=== PATIENT | male | born 1955 | race Caucasian/White ===

== ENCOUNTER → 2018-02-08 | Outpatient (CLI) | payer OTHER ==
[~2018-02-08] MED LIST: ANTIVERT/2525 MG PO; ASPIRIN81 M1 PO; B-12250 MCG PO; B121000 MCG/1 IM; FERROUS SULFAT324 MG PO; HYDROCODONE-APA1 TA1 PO; K-DUR 2020 MEQ PO; KLOR-CON M2020 MEQ; KLOR-CON M2020 MEQ PO; LANAMINS1 CAP PO; LASIX20 MG PO; LASIX40 MG; LIPITOR20 MG; LOTREL 5 MG-201 CA1; LYRICA100 MG PO; METOPROLOL25 MG PO; MICRO K10 MEQ PO; MOBIC7.5 MG; MOTRIN800 MG PO; MUCINEX600 MG PO; NATURE'S BLEND F1 MG PO; NITROSTAT0.4 MG SL; PLAVIX; PLAVIX75 MG PO; POTASSIUM20 MEQ PO; PRILOSEC40 MG PO; PROTONIX; PROTONIX40 MG PO; ZESTRIL2.5 MG PO; ZOCOR40 MG PO
[2018-02-08 09:37] LABS: BASO % 0.4 % (0.0-1.0); EOS # 0.3 10*3/uL (0.0-0.4); EOS % 3.2 % (1.0-4.0); HEMATOCRIT 30.1 % (42.0-52.0); HEMOGLOBIN 8.6 g/dl (14.0-18.0); LYMPH # 1.3 10*3/uL (1.3-4.4); MEAN CELL VOLUME 72.9 fl (80.0-94.0); MEAN CORPUSCULAR HGB 20.8 pg (27.0-31.0); MEAN CORPUSCULAR HGB CONC 28.6 g/dl (33.0-37.0); MEAN PLATELET VOLUME 10.3 fl (9.6-12.3); MONO # 0.7 10*3/uL (0.1-1.0); MONO % 6.4 % (3.0-9.0); NEUT # 8.2 10*3/uL (2.3-7.9); NEUT % 77.8 % (47.0-73.0); PLATELET COUNT AUTOMATED 352 10*3/uL (130-400); RED BLOOD COUNT 4.13 10*6/uL (4.50-5.90); RED CELL DISTRI WIDTH 15.6 % (0-14.5); WHITE BLOOD COUNT 10.5 10*3/uL (4.8-10.8)
[2018-02-08 10:05] LABS: CHLORIDE 108 mmol/L (98-107); POTASSIUM 4.1 mmol/L (3.5-5.1); SODIUM 141 mmol/L (136-145)
[2018-02-08 10:13] LABS: ALBUMIN 3.4 gm/dl (3.1-4.5); ALKALINE PHOSPHATASE 115 U/L (45-117); BUN 18 mg/dl (7-24); CHOLESTEROL 108 mg/dL (<200); CREATININE 1.14 mg/dL (0.70-1.30); HDL CHOLESTEROL 30 mg/dl (40-60); IRON 18 ug/dL (65-175); LDL CHOLESTEROL 61 mg/dL (9-159); SGOT/AST 21 IU/L (3-35); SGPT/ALT 20 U/L (12-78); TOTAL PROTEIN 7.8 gm/dL (6.4-8.2); TRIGLYCERIDES 86 mg/dl (<150); VLDL CHOLESTEROL 17 mg/dL (6-40)
== END | disposition home or self-care (01) ==
LOC: LAB 09:03
PROVIDERS: Registered Nurse Flight
DX: D51.9 Vitamin B12 deficiency anemia, unspecified (principal); E78.00 Pure hypercholesterolemia, unspecified

== ENCOUNTER 2018-06-11 10:57 | Inpatient (IN) | payer OTHER ==
[~2018-06-11] VITALS: Ht 177.8 cm; Wt 86.4 kg
[2018-06-11] VITALS (11 sets, daily range): BP systolic 97–135; BP diastolic 52–94
--- NOTE | ~2018-06-11 | EKG ---
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
--- NOTE | ~2018-06-11 | EKG ---
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
--- NOTE | ~2018-06-11 | EKG ---
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: Ewa Martinez : 1955 Requested By: DIONISIO TIAN DNP Order Number: [id number] Reading MD: Dafne Vinson MD Measurements Intervals [place] Rate: 99 P: 63 MO: 164 QRS: 3 QRSD: 115 T: -2 QT: 367 QTc: 471 Interpretive Statements Sinus rhythm Incomplete left bundle branch block Lateral leads are also involved Artifact in lead(s) III,aVL,aVF,V1,V2,V3,V4,V5,V6 and baseline wander in lead(s) I,II,aVR,aVL,aVF,V1,V2,V3,V4,V5,V6 Electronically Signed On 06-11-2018 15:37:32 PDT by Dafne Vinson MD CM:EKGRPT:ELECTROCARDIOGRAM REPORT [id number] DIONISIO TIAN DNP EPIPHANY DRAFT REPORT DIONISIO TIAN DNP
--- NOTE | ~2018-06-11 | EKG ---
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
--- NOTE | ~2018-06-11 | O ---
[place], [place] OPERATIVE NOTE NAME: MARLY BURGER UNIT #: [id number] ROOM: 502 DOCTOR: LEFTY GUADARRAMA MD BIRTHDATE: [birth year] DOS: 06/12/2018 GASTROENDOSCOPIC REPORT INDICATIONS: A 63-year-old patient who presented with chief complaint of anemia, undergoing investigation. PROCEDURE: Today's procedure part of investigation is panendoscopy and colonoscopy. PREMEDICATION: Propofol. SCOPE: Olympus folding colonoscope 10L video. REPORT: After putting the patient in left lateral position and application of lubricant to the scope, the scope was introduced. Thereafter, under direct visualization, advanced through the length of esophagus without difficulty. Gastric pouch was entered. Mild gastritis seen. Antral biopsy obtained. Duodenal bulb, second and third part within normal limits. The patient extubated, tolerated the procedure well. IMPRESSION: Mild gastritis. DISCUSSION: I am not convinced this is the source of anemia. Therefore, we are going to proceed with colonoscopic evaluation. Consultation has been dictated for investigation of anemia. PROCEDURE: Today's procedure part of investigation is colonoscopy plus biopsy. PREMEDICATION: Propofol. SCOPE: Olympus folding colonoscope 10L video. REPORT: After putting the patient in left lateral position and application of lubricant to the scope, the scope was introduced. Thereafter, under direct visualization, I advanced through the length of colon without difficulty. Base of the cecum explored, almost at the edge of the appendiceal orifice. Hypertrophic fold was noted, for your concern if this is carcinoma versus carcinoid area. Photographed multiple biopsies obtained adequate for tissue diagnosis. The patient extubated, tolerated the procedure well. IMPRESSION: Hypertrophic fold at the cecum, status post multiple biopsies. PLAN AND DISCUSSION: Awaiting biopsy report. We are going to be feeding this gentleman with a regular diet and depending on the biopsy report improvement, we will implement future plans appropriately. Thank you very much indeed. [place], [place] OPERATIVE NOTE NAME: MARLY BURGER UNIT #: [id number] ROOM: 502 DOCTOR: LEFTY GUADARRAMA MD BIRTHDATE: [birth year] LEFTY GUADARRAMA MD CM:MAKSIMECORD:OPERATIVE NOTE [id number] LEFTY GUADARRAMA MD 06/12/18 1434 interface
[~2018-06-11 10:57] MED LIST changes: +B-12 COMPL1000 MCG/1 IM; -B-12250 MCG PO; +KLOR-CON M2020 ME1 PO; +PANTOPRAZOLE SO40 MG PO; -POTASSIUM20 MEQ PO; -PRILOSEC40 MG PO
[2018-06-11 11:39] LABS: BASO # 0.1 10*3/uL (0.0-0.1); BASO % 0.6 % (0.0-1.0); EOS # 0.3 10*3/uL (0.0-0.4); HEMATOCRIT 27.8 % (42.0-52.0); HEMOGLOBIN 7.4 g/dl (14.0-18.0); LYMPH # 0.9 10*3/uL (1.3-4.4); LYMPH % 9.6 % (27.0-41.0); MEAN CELL VOLUME 71.6 fl (80.0-94.0); MEAN CORPUSCULAR HGB 19.1 pg (27.0-31.0); MEAN CORPUSCULAR HGB CONC 26.6 g/dl (33.0-37.0); MEAN PLATELET VOLUME 9.4 fl (9.6-12.3); MONO # 0.8 10*3/uL (0.1-1.0); MONO % 8.3 % (3.0-9.0); NEUT # 7.1 10*3/uL (2.3-7.9); NEUT % 78.2 % (47.0-73.0); PLATELET COUNT AUTOMATED 439 10*3/uL (130-400); RED BLOOD COUNT 3.88 10*6/uL (4.50-5.90); RED CELL DISTRI WIDTH 17.5 % (0-14.5); WHITE BLOOD COUNT 9.1 10*3/uL (4.8-10.8)
[2018-06-11 12:02] LABS: ALBUMIN 3.3 gm/dl (3.1-4.5); ALKALINE PHOSPHATASE 89 U/L (45-117); BUN 22 mg/dl (7-24); CHLORIDE 107 mmol/L (98-107); CREATININE 1.22 mg/dL (0.70-1.30); POTASSIUM 4.2 mmol/L (3.5-5.1); SGOT/AST 14 IU/L (3-35); SGPT/ALT 18 U/L (12-78); SODIUM 141 mmol/L (136-145)
[2018-06-11 12:05] LABS: TROPONIN I < 0.015 ng/ml (<0.045)
[2018-06-11] MEDS ORDERED: VITAMIN D-32000 UNI1 PO (14:44)
[2018-06-12] VITALS (8 sets, daily range): BP systolic 91–120; BP diastolic 57–78
[2018-06-12 06:00] LABS: BASO % 0.5 % (0.0-1.0); EOS # 0.3 10*3/uL (0.0-0.4); EOS % 3.3 % (1.0-4.0); HEMATOCRIT 29.6 % (42.0-52.0); LYMPH # 1.1 10*3/uL (1.3-4.4); LYMPH % 12.7 % (27.0-41.0); MEAN CELL VOLUME 72.2 fl (80.0-94.0); MEAN CORPUSCULAR HGB 19.5 pg (27.0-31.0); MONO # 0.7 10*3/uL (0.1-1.0); MONO % 8.4 % (3.0-9.0); NEUT # 6.6 10*3/uL (2.3-7.9); NEUT % 74.9 % (47.0-73.0); PLATELET COUNT AUTOMATED 435 10*3/uL (130-400); RED CELL DISTRI WIDTH 17.6 % (0-14.5); WHITE BLOOD COUNT 8.8 10*3/uL (4.8-10.8)
[2018-06-12 06:26] LABS: ALBUMIN 3.3 gm/dl (3.1-4.5); ALKALINE PHOSPHATASE 88 U/L (45-117); BUN 21 mg/dl (7-24); CHLORIDE 107 mmol/L (98-107); CHOLESTEROL 96 mg/dL (<200); CREATININE 1.11 mg/dL (0.70-1.30); FREE T4 1.15 ng/dl (0.76-1.46); HDL CHOLESTEROL 30 mg/dl (40-60); LDL CHOLESTEROL 51 mg/dL (9-159); PHOSPHOROUS 4.2 mg/dL (2.5-4.9); POTASSIUM 3.9 mmol/L (3.5-5.1); SGOT/AST 14 IU/L (3-35); SGPT/ALT 17 U/L (12-78); SODIUM 140 mmol/L (136-145); TOTAL PROTEIN 7.8 gm/dL (6.4-8.2); TRIGLYCERIDES 75 mg/dl (<150); VLDL CHOLESTEROL 15 mg/dL (6-40)
[2018-06-12 06:30] LABS: ACT PARTIAL THROMBO TIME 24.7 SECONDS (20.8-31.5)
[2018-06-12 06:33] LABS: VITAMIN D, 25-HYDROXY 71.9 ng/mL (30-100)
[2018-06-13] VITALS (9 sets, daily range): BP systolic 92–139; BP diastolic 57–112
[2018-06-13 07:01] LABS: BASO % 0.3 % (0.0-1.0); EOS # 0.3 10*3/uL (0.0-0.4); HEMATOCRIT 27.3 % (42.0-52.0); HEMOGLOBIN 7.4 g/dl (14.0-18.0); LYMPH # 1.3 10*3/uL (1.3-4.4); LYMPH % 11.8 % (27.0-41.0); MEAN CELL VOLUME 73.4 fl (80.0-94.0); MEAN CORPUSCULAR HGB 19.9 pg (27.0-31.0); MEAN CORPUSCULAR HGB CONC 27.1 g/dl (33.0-37.0); MEAN PLATELET VOLUME 10.2 fl (9.6-12.3); MONO # 0.9 10*3/uL (0.1-1.0); MONO % 8.7 % (3.0-9.0); NEUT % 75.8 % (47.0-73.0); PLATELET COUNT AUTOMATED 418 10*3/uL (130-400); RED BLOOD COUNT 3.72 10*6/uL (4.50-5.90); RED CELL DISTRI WIDTH 17.8 % (0-14.5); WHITE BLOOD COUNT 10.6 10*3/uL (4.8-10.8)
[2018-06-14] VITALS: BP 109/75
[2018-06-14 08:00] VITALS: BP 109/71
[2018-06-14 08:33] LABS: BUN 18 mg/dl (7-24); CHLORIDE 109 mmol/L (98-107); CREATININE 0.94 mg/dL (0.70-1.30); POTASSIUM 3.6 mmol/L (3.5-5.1); SODIUM 141 mmol/L (136-145)
[2018-06-14 08:38] LABS: BASO # 0.1 10*3/uL (0.0-0.1); BASO % 0.5 % (0.0-1.0); EOS # 0.4 10*3/uL (0.0-0.4); EOS % 3.8 % (1.0-4.0); HEMATOCRIT 31.4 % (42.0-52.0); HEMOGLOBIN 8.7 g/dl (14.0-18.0); LYMPH # 1.2 10*3/uL (1.3-4.4); LYMPH % 12.1 % (27.0-41.0); MEAN CELL VOLUME 74.8 fl (80.0-94.0); MEAN CORPUSCULAR HGB 20.7 pg (27.0-31.0); MEAN CORPUSCULAR HGB CONC 27.7 g/dl (33.0-37.0); MEAN PLATELET VOLUME 9.6 fl (9.6-12.3); MONO # 0.9 10*3/uL (0.1-1.0); MONO % 8.7 % (3.0-9.0); NEUT # 7.5 10*3/uL (2.3-7.9); NEUT % 74.7 % (47.0-73.0); PLATELET COUNT AUTOMATED 419 10*3/uL (130-400); RED CELL DISTRI WIDTH 18.9 % (0-14.5); WHITE BLOOD COUNT 10.1 10*3/uL (4.8-10.8)
[2018-06-14 12:00] VITALS: BP 122/76
== END 2018-06-14 15:22 | disposition home or self-care (01) | DRG 378 ==
LOC: ED 10:57 → EDHOLD 13:36 → 5E 13:36
PROVIDERS: Family Medicine; Internal Medicine; Nurse Practitioner Family; ADMIT Internal Medicine
PROC: 30233N1 Transfusion of Nonautologous Red Blood Cells into Peripheral Vein, Percutaneous Approach (ICD-10-PCS; principal; 2018-06-11)
PROC: 0DBH8ZX Excision of Cecum, Via Natural or Artificial Opening Endoscopic, Diagnostic (ICD-10-PCS; 2018-06-12)
PROC: 0DB78ZX Excision of Stomach, Pylorus, Via Natural or Artificial Opening Endoscopic, Diagnostic (ICD-10-PCS; 2018-06-12)
DX: K29.71 Gastritis, unspecified, with bleeding (principal); E44.0 Moderate protein-calorie malnutrition; K59.39 Other megacolon; R42 Dizziness and giddiness; D47.3 Essential (hemorrhagic) thrombocythemia; F17.210 Nicotine dependence, cigarettes, uncomplicated; I25.708 Atherosclerosis of coronary artery bypass graft(s), unspecified, with other forms of angina pectoris; D50.0 Iron deficiency anemia secondary to blood loss (chronic); I11.0 Hypertensive heart disease with heart failure; I50.9 Heart failure, unspecified; J44.9 Chronic obstructive pulmonary disease, unspecified; E78.5 Hyperlipidemia, unspecified; K21.9 Gastro-esophageal reflux disease without esophagitis; G62.9 Polyneuropathy, unspecified; I25.2 Old myocardial infarction; Z95.5 Presence of coronary angioplasty implant and graft; Z95.1 Presence of aortocoronary bypass graft; Z82.49 Family history of ischemic heart disease and other diseases of the circulatory system; Z71.6 Tobacco abuse counseling; Z80.9 Family history of malignant neoplasm, unspecified; Z84.1 Family history of disorders of kidney and ureter; Z79.82 Long term (current) use of aspirin; Z79.899 Other long term (current) drug therapy; Z68.27 Body mass index [BMI] 27.0-27.9, adult

== ENCOUNTER → 2018-06-16 | Outpatient (CLI) | payer OTHER ==
[~2018-06-16] MED LIST changes: +AUGMENTIN 875875 MG PO; +CIPRO500 MG PO; +Lopressor25 MG PO; +VITAMIN D-32000 UNI1 PO; +XELODA500 MG PO
[2018-06-16 11:39] LABS: HEMATOCRIT 33.4 % (42.0-52.0); HEMOGLOBIN 9.4 g/dl (14.0-18.0); MEAN CELL VOLUME 74.2 fl (80.0-94.0); MEAN CORPUSCULAR HGB 20.9 pg (27.0-31.0); MEAN CORPUSCULAR HGB CONC 28.1 g/dl (33.0-37.0); MEAN PLATELET VOLUME 9.8 fl (9.6-12.3); RED BLOOD COUNT 4.5 10*6/uL (4.50-5.90); RED CELL DISTRI WIDTH 19.8 % (0-14.5); WHITE BLOOD COUNT 9.9 10*3/uL (4.8-10.8)
== END | disposition home or self-care (01) ==
LOC: LAB 11:05
PROVIDERS: Internal Medicine
DX: K92.2 Gastrointestinal hemorrhage, unspecified (principal)

== ENCOUNTER 2018-10-16 17:29 | Inpatient (IN) | payer OTHER ==
[~2018-10-16] VITALS: Ht 175.2 cm; Wt 78.1 kg
[~2018-10-16 17:29] MED LIST changes: -AUGMENTIN 875875 MG PO; -CIPRO500 MG PO; -Lopressor25 MG PO; -XELODA500 MG PO
[2018-10-16 17:30] VITALS: BP 108/59
[2018-10-16 18:39] LABS: BILIRUBIN NEGATIVE (NEGATIVE); BLOOD TRACE-INTACT (NEGATIVE); CLARITY SL CLOUDY (CLEAR); COLOR YELLOW (YELLOW); GLUCOSE NEGATIVE (NEGATIVE); KETONE NEGATIVE (NEGATIVE); LEUKO ESTERASE 1+ (NEGATIVE); NITRITE POSITIVE (NEGATIVE); PH 5.5 (5.0-9.0); SPECIFIC GRAVITY 1.025 (1.005-1.030); UROBILINOGEN 0.2 E.U./dl (0.2-1.0)
[2018-10-16 18:44] LABS: BACTERIA 3+; RBC 0-2 rbc/hpf (0-2); WBC 31-40 wbc/hpf (0-5)
[2018-10-16 19:52] VITALS: BP 108/62
[2018-10-16 19:53] LABS: HEMATOCRIT 37.2 % (42.0-52.0); HEMOGLOBIN 11.9 g/dl (14.0-18.0); MEAN CELL VOLUME 90.5 fl (80.0-94.0); MEAN PLATELET VOLUME 9.9 fl (9.6-12.3); PLATELET COUNT AUTOMATED 157 10*3/uL (130-400); RED BLOOD COUNT 4.11 10*6/uL (4.50-5.90); WHITE BLOOD COUNT 10.1 10*3/uL (4.8-10.8)
[2018-10-16 20:10] LABS: ALBUMIN 3.6 gm/dl (3.1-4.5); ALKALINE PHOSPHATASE 71 U/L (45-117); BUN 22 mg/dl (7-24); CHLORIDE 106 mmol/L (98-107); CREATININE 0.98 mg/dL (0.70-1.30); POTASSIUM 3.3 mmol/L (3.5-5.1); SGOT/AST 32 IU/L (3-35); SGPT/ALT 27 U/L (12-78); SODIUM 138 mmol/L (136-145); TOTAL PROTEIN 6.8 gm/dL (6.4-8.2)
[2018-10-16 20:11] LABS: PLATELET SUFFICIENCY NORMAL (NORMAL); TOTAL CELLS COUNTED 100 #CELLS
[2018-10-16 20:12] LABS: OVALOCYTES FEW
--- NOTE | 2018-10-16 20:40 | NUR ---
PT STATES DR CASEY IN [place] IS PT'S ONCOLOGISTS.
[2018-10-16 21:30] VITALS: BP 96/48
--- NOTE | 2018-10-16 21:30 | NUR ---
Time: 2129 A 63 year old MALE admitted to 5E under services of JADEN CROCKER DO. Pt. arrived via bed from ER. Chief complaint: FALL, WEAKNESS, FATIGUED. MARY KAY LINO
[2018-10-16 21:45] VITALS: BP 96/48
--- NOTE | 2018-10-16 23:53 | NUR ---
PATIENT MADE MS. HEART MONITOR REMOVED AND RETURNED TO FLOOR.
[2018-10-17] VITALS (7 sets, daily range): BP systolic 89–115; BP diastolic 50–76
[2018-10-17] MEDS ORDERED: Lopressor25 MG PO (00:23)
--- NOTE | 2018-10-17 00:57 | NUR ---
MED REC UPDATED VIA MED CLAIM HISTORY. PATIENTS FAMILY WILL BRING IN PATIENTS CHEMO MEDICATIONS IN THE MORNING.
[2018-10-17 06:25] LABS: HEMATOCRIT 35.3 % (42.0-52.0); HEMOGLOBIN 11.1 g/dl (14.0-18.0); MEAN CELL VOLUME 93.4 fl (80.0-94.0); MEAN CORPUSCULAR HGB 29.4 pg (27.0-31.0); MEAN CORPUSCULAR HGB CONC 31.4 g/dl (33.0-37.0); MEAN PLATELET VOLUME 10.9 fl (9.6-12.3); PLATELET COUNT AUTOMATED 145 10*3/uL (130-400); RED BLOOD COUNT 3.78 10*6/uL (4.50-5.90); RED CELL DISTRI WIDTH 21.1 % (0-14.5); WHITE BLOOD COUNT 7.8 10*3/uL (4.8-10.8)
[2018-10-17 06:37] LABS: ALBUMIN 2.8 gm/dl (3.1-4.5); ALKALINE PHOSPHATASE 60 U/L (45-117); BUN 17 mg/dl (7-24); CHLORIDE 111 mmol/L (98-107); PHOSPHOROUS 2.3 mg/dL (2.5-4.9); POTASSIUM 3.5 mmol/L (3.5-5.1); SGOT/AST 17 IU/L (3-35); SGPT/ALT 23 U/L (12-78); SODIUM 141 mmol/L (136-145); TOTAL PROTEIN 5.9 gm/dL (6.4-8.2)
[2018-10-17 06:40] LABS: CHOLESTEROL 76 mg/dL (<200); HDL CHOLESTEROL 33 mg/dl (40-60); LDL CHOLESTEROL 26 mg/dL (9-159); TRIGLYCERIDES 83 mg/dl (<150); VLDL CHOLESTEROL 17 mg/dL (6-40)
[2018-10-17 07:14] LABS: PLATELET SUFFICIENCY NORMAL (NORMAL); TOTAL CELLS COUNTED 100 #CELLS
--- NOTE | 2018-10-17 08:56 | NUR ---
NOTIFIED DR DURHAM OF POSITIVE B/C CALLED BY LAB.
[2018-10-17] MEDS ORDERED: XELODA500 MG PO (12:23)
--- NOTE | 2018-10-17 13:18 | NUR ---
DR YOUSSEF ANSWERING SERVICE NOTIFIDE OF NEW CONSULT FOR GPC/GNB IN IMMUNOCOMRIMISED PT.
--- NOTE | 2018-10-17 14:25 | NUR ---
NOTIFIED DR TREADWELL OF PT EATING LUNCH AND WE WOULD START BARIUM AT [address] NOTIFIED HIM OF POSITIVE B/C FOR GPC.
--- NOTE | 2018-10-17 15:03 | NUR ---
Discharge instructions reviewed with patient/family. Patient receptive and verbalizes understanding. Follow-up care arranged. Written instructions given to patient/family. YESSI CRAWFORD
--- NOTE | 2018-10-17 20:56 | NUR ---
PATIENT IS RESTING IN BED WITH EASY AND REGULAR RESPERS ON ROOM AIR. ASSESSMENT IS COMPLETE WITH NO C/O OR S/S OF DISTRESS NOTED AT THIS TIME. BED IS LOW, LOCKED, AND CALL LIGHT IS WIHTIN REACH. WILL CONTINUE TO MONITOR, SEE SHIFT ASSESSMENT.
--- NOTE | 2018-10-17 23:15 | NUR ---
PATIENT IS SLEEPING WITH EASY AND REGULAR RESPERS ON ROOM AIR. CALL LIGHT IS WITHIN REACH.
[2018-10-18] VITALS: BP 109/67
--- NOTE | 2018-10-18 03:45 | NUR ---
PATIENT IS SLEEPING WITH EASY AND REGULAR RESPERS. CALL LIGHT IS WITHIN REACH, WILL CONTINUE TO MONITOR.
[2018-10-18 06:03] LABS: BASO % 0.7 % (0.0-1.0); EOS # 0.2 10*3/uL (0.0-0.4); EOS % 4.7 % (1.0-4.0); HEMATOCRIT 34.5 % (42.0-52.0); HEMOGLOBIN 10.9 g/dl (14.0-18.0); LYMPH # 0.7 10*3/uL (1.3-4.4); LYMPH % 17.8 % (27.0-41.0); MEAN CELL VOLUME 93.8 fl (80.0-94.0); MEAN CORPUSCULAR HGB 29.6 pg (27.0-31.0); MEAN CORPUSCULAR HGB CONC 31.6 g/dl (33.0-37.0); MEAN PLATELET VOLUME 10.8 fl (9.6-12.3); MONO # 0.4 10*3/uL (0.1-1.0); MONO % 10.9 % (3.0-9.0); NEUT # 2.7 10*3/uL (2.3-7.9); NEUT % 65.9 % (47.0-73.0); PLATELET COUNT AUTOMATED 135 10*3/uL (130-400); RED BLOOD COUNT 3.68 10*6/uL (4.50-5.90); RED CELL DISTRI WIDTH 21.2 % (0-14.5)
[2018-10-18 06:29] LABS: BUN 12 mg/dl (7-24); CHLORIDE 110 mmol/L (98-107); CREATININE 0.84 mg/dL (0.70-1.30); POTASSIUM 3.1 mmol/L (3.5-5.1); SODIUM 142 mmol/L (136-145)
--- NOTE | 2018-10-18 06:35 | NUR ---
PATIENT IS RESTING IN BED WITH EASY AND REGULAR RESPERS ON ROOM AIR. NO C/O VOICED AT THIS TIME. CALL LIGHT IS WITHIN REACH.
[2018-10-18 08:00] VITALS: BP 104/72
--- NOTE | 2018-10-18 09:24 | NUR ---
PHYSICAL THERAPY Physical therapy evaluation complete,5E. Low complexity evaluation only this date (64831). Patient has history of falls and weakness, but denies need for PT services at this time. Recommend home health PT services at discharge. Thank you. Luisa Gonzalez,PT,DPT.
--- NOTE | 2018-10-18 09:25 | NUR ---
Occupational Therapy evaluation completed on 5 with full eval to follow. Precautions include fall precautions, inconsistant use of wh walker, bilateral foot drop without braces, h/o falls,moderate complexity level 40208 via chart review, testing and evaluation. Recommend return home with home health SN,OT,PT as patient refuses further OT/PT as an inpatient. Thank you. Brunilda Groves OTR/L
[2018-10-18 12:00] VITALS: BP 117/73
--- NOTE | 2018-10-18 12:28 | NUR ---
Certified Retinal Angiographer in to talk to patient. Patient states lives at HOME with . There are FEW steps in the home. Physician: ARH FRIED Pharmacy: [facility] Home health services: NONE Patient's level of ADLs: MODERATE ASSIST Patient has working utilities: YES DME: WALKER Follow-up physician's appointment after d/c: WILL BE MADE BY HOSPITALIST NURSE DIRECTOR ON DISCHARGE Does patient want to access PORTAL?: NO Discharge plan PT STATES HE LIVES AT HOME WITH HIS AND SHE HELPS HIM WITH HIS CARE. TALKED TO HIM ABOUT HOME HEALTH SERVICES. 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 ALSO STATES HE HAS A FAMILY MEMBER THAT IS A [employer] HAND AND ONE THAT IS AN RN SO THEY HELP HIM ALSO. ADAMENTLY DENIES HE WILL HAVE AN NEEDS ON DISCHARGE. STATES I HAVE EVERYTHING I NEED. WILL CONTINUE TO FOLLOW. STATES HE WILL HAVE A RIDE HOME.. CHRISTOS NICHOLSON
[2018-10-18 16:00] VITALS: BP 105/71
[2018-10-18 20:00] VITALS: BP 120/74
[2018-10-19] VITALS: BP 116/67
[2018-10-19 07:43] LABS: BASO % 0.5 % (0.0-1.0); EOS # 0.6 10*3/uL (0.0-0.4); EOS % 10.6 % (1.0-4.0); HEMATOCRIT 34.6 % (42.0-52.0); HEMOGLOBIN 11.2 g/dl (14.0-18.0); LYMPH # 1.3 10*3/uL (1.3-4.4); LYMPH % 23.8 % (27.0-41.0); MEAN CELL VOLUME 91.5 fl (80.0-94.0); MEAN CORPUSCULAR HGB 29.6 pg (27.0-31.0); MEAN CORPUSCULAR HGB CONC 32.4 g/dl (33.0-37.0); MEAN PLATELET VOLUME 10.5 fl (9.6-12.3); MONO # 0.7 10*3/uL (0.1-1.0); MONO % 12.1 % (3.0-9.0); NEUT # 2.9 10*3/uL (2.3-7.9); NEUT % 52.6 % (47.0-73.0); PLATELET COUNT AUTOMATED 162 10*3/uL (130-400); RED BLOOD COUNT 3.78 10*6/uL (4.50-5.90); RED CELL DISTRI WIDTH 20.7 % (0-14.5); WHITE BLOOD COUNT 5.5 10*3/uL (4.8-10.8)
[2018-10-19 08:00] VITALS: BP 124/90
[2018-10-19 08:31] LABS: CHLORIDE 109 mmol/L (98-107); POTASSIUM 3.4 mmol/L (3.5-5.1); SODIUM 143 mmol/L (136-145)
[2018-10-19 08:44] LABS: ALBUMIN 3.1 gm/dl (3.1-4.5); BUN 13 mg/dl (7-24); CREATININE 0.89 mg/dL (0.70-1.30); PHOSPHOROUS 3.5 mg/dL (2.5-4.9)
--- NOTE | 2018-10-19 10:11 | NUR ---
LAB CALLED WITH +BLOOD CULTURE RESULTS. CALL PLACED TO DR SCOTT. DR YOUSSEF COVERING AND I'M AWAITING RETURN PHONECALL.
--- NOTE | 2018-10-19 11:27 | NUR ---
PT CONTINUES TO DENY HE WILL HAVE NEEDS ON DISCHARGE. WILL CONTINUE TO FOLLOW.
[2018-10-19 12:00] VITALS: BP 128/80
[2018-10-19 16:00] VITALS: BP 141/95
[2018-10-19] MEDS ORDERED: CIPRO500 MG PO (17:08)
[2018-10-19] MEDS ORDERED: AUGMENTIN 875875 MG PO (17:08)
[2018-10-19 20:00] VITALS: BP 140/70
[2018-10-20] VITALS: BP 138/99
[2018-10-20 07:08] LABS: BASO % 0.5 % (0.0-1.0); EOS # 0.9 10*3/uL (0.0-0.4); EOS % 13.8 % (1.0-4.0); HEMATOCRIT 36.5 % (42.0-52.0); HEMOGLOBIN 11.7 g/dl (14.0-18.0); LYMPH # 1.7 10*3/uL (1.3-4.4); LYMPH % 26.4 % (27.0-41.0); MEAN CELL VOLUME 92.4 fl (80.0-94.0); MEAN CORPUSCULAR HGB 29.6 pg (27.0-31.0); MEAN CORPUSCULAR HGB CONC 32.1 g/dl (33.0-37.0); MEAN PLATELET VOLUME 10.4 fl (9.6-12.3); MONO # 0.4 10*3/uL (0.1-1.0); MONO % 6.4 % (3.0-9.0); NEUT # 3.4 10*3/uL (2.3-7.9); NEUT % 52.9 % (47.0-73.0); PLATELET COUNT AUTOMATED 199 10*3/uL (130-400); RED BLOOD COUNT 3.95 10*6/uL (4.50-5.90); RED CELL DISTRI WIDTH 20.8 % (0-14.5); WHITE BLOOD COUNT 6.4 10*3/uL (4.8-10.8)
[2018-10-20 08:00] VITALS: BP 110/70
[2018-10-20 08:00] LABS: BUN 16 mg/dl (7-24); CHLORIDE 106 mmol/L (98-107); CREATININE 0.83 mg/dL (0.70-1.30); POTASSIUM 3.7 mmol/L (3.5-5.1); SODIUM 141 mmol/L (136-145)
--- NOTE | 2018-10-20 10:25 | NUR ---
PT DISCHARGED AT THIS TIME. IV REMOVED AND PRESSURE DRESSING APPLIED. VERBALIZED UNDERSTANDING OF DISCHARGE INSTRUCTIONS.
--- NOTE | 2018-10-20 11:26 | NUR ---
DENIES NEEDS AT HOME. WILL CONTINUE TO FOLLOW.
== END 2018-10-20 10:25 | disposition home or self-care (01) | DRG 871 ==
LOC: ED 17:29 → EDHOLD 20:50 → 5E 20:50
PROVIDERS: Emergency Medicine; Internal Medicine; ADMIT Internal Medicine
PROC: 06HY33Z Insertion of Infusion Device into Lower Vein, Percutaneous Approach (ICD-10-PCS; principal; 2018-10-16)
DX: A41.9 Sepsis, unspecified organism (principal); E43 Unspecified severe protein-calorie malnutrition; N39.0 Urinary tract infection, site not specified; I50.42 Chronic combined systolic (congestive) and diastolic (congestive) heart failure; C16.9 Malignant neoplasm of stomach, unspecified; C78.7 Secondary malignant neoplasm of liver and intrahepatic bile duct; I11.0 Hypertensive heart disease with heart failure; R31.9 Hematuria, unspecified; D50.9 Iron deficiency anemia, unspecified; E87.6 Hypokalemia; B96.1 Klebsiella pneumoniae [K. pneumoniae] as the cause of diseases classified elsewhere; D64.81 Anemia due to antineoplastic chemotherapy; T45.1X5A Adverse effect of antineoplastic and immunosuppressive drugs, initial encounter; D70.3 Neutropenia due to infection; I25.10 Atherosclerotic heart disease of native coronary artery without angina pectoris; K21.9 Gastro-esophageal reflux disease without esophagitis; E78.5 Hyperlipidemia, unspecified; G62.9 Polyneuropathy, unspecified; E80.6 Other disorders of bilirubin metabolism; E83.39 Other disorders of phosphorus metabolism; Z66 Do not resuscitate; Z51.5 Encounter for palliative care; B95.4 Other streptococcus as the cause of diseases classified elsewhere; Z95.1 Presence of aortocoronary bypass graft; Z95.5 Presence of coronary angioplasty implant and graft; Z79.899 Other long term (current) drug therapy; Z92.21 Personal history of antineoplastic chemotherapy; Z79.82 Long term (current) use of aspirin; Z98.84 Bariatric surgery status; Z82.49 Family history of ischemic heart disease and other diseases of the circulatory system; Z84.1 Family history of disorders of kidney and ureter; Z90.49 Acquired absence of other specified parts of digestive tract; Y92.89 Other specified places as the place of occurrence of the external cause; Z68.26 Body mass index [BMI] 26.0-26.9, adult

== ENCOUNTER → 2019-01-04 | Outpatient (CLI) | payer OTHER ==
[~2019-01-04] MED LIST changes: +AUGMENTIN 875875 MG PO; +CIPRO500 MG PO; +Lopressor25 MG PO; +XELODA500 MG PO
== END | disposition home or self-care (01) ==
LOC: CT 00:17
DX: C18.4 Malignant neoplasm of transverse colon (principal); K80.20 Calculus of gallbladder without cholecystitis without obstruction; R63.4 Abnormal weight loss

== ENCOUNTER → 2019-02-17 | Outpatient (CLI) | payer OTHER ==
[2019-02-17 12:01] LABS: BILIRUBIN NEGATIVE (NEGATIVE); BLOOD NEGATIVE (NEGATIVE); CLARITY CLEAR (CLEAR); COLOR YELLOW (YELLOW); GLUCOSE NEGATIVE (NEGATIVE); KETONE NEGATIVE (NEGATIVE); LEUKO ESTERASE NEGATIVE (NEGATIVE); NITRITE NEGATIVE (NEGATIVE); PH 5.5 (5.0-9.0); UROBILINOGEN 0.2 E.U./dl (0.2-1.0)
[2019-02-17 12:12] LABS: BACTERIA 1+; MUCOUS 2+; WBC 0-2 wbc/hpf (0-5)
== END | disposition home or self-care (01) ==
LOC: LAB 11:35
PROVIDERS: Registered Nurse Flight
DX: R30.0 Dysuria (principal)

== ENCOUNTER → 2019-06-28 | Outpatient (CLI) | payer OTHER ==
[2019-06-28 09:56] LABS: CREATININE 0.95 mg/dL (0.70-1.30)
== END | disposition home or self-care (01) ==
LOC: CT 00:45
PROVIDERS: Radiology Diagnostic Radiology
DX: C18.9 Malignant neoplasm of colon, unspecified (principal); K76.9 Liver disease, unspecified; K80.20 Calculus of gallbladder without cholecystitis without obstruction; N32.3 Diverticulum of bladder; M19.90 Unspecified osteoarthritis, unspecified site; Z90.49 Acquired absence of other specified parts of digestive tract

== ENCOUNTER → 2019-07-13 | Outpatient (CLI) | payer OTHER ==
[2019-07-13 14:46] LABS: BASO % 0.5 % (0.0-1.0); EOS # 0.3 10*3/uL (0.0-0.4); EOS % 5.2 % (1.0-4.0); HEMATOCRIT 40.1 % (42.0-52.0); LYMPH # 1.3 10*3/uL (1.3-4.4); LYMPH % 21.9 % (27.0-41.0); MEAN CELL VOLUME 105.5 fl (80.0-94.0); MEAN CORPUSCULAR HGB 36.3 pg (27.0-31.0); MEAN CORPUSCULAR HGB CONC 34.4 g/dl (33.0-37.0); MEAN PLATELET VOLUME 10.3 fl (9.6-12.3); MONO # 0.5 10*3/uL (0.1-1.0); MONO % 8.9 % (3.0-9.0); NEUT # 3.8 10*3/uL (2.3-7.9); NEUT % 63.3 % (47.0-73.0); PLATELET COUNT AUTOMATED 195 10*3/uL (130-400); RED CELL DISTRI WIDTH 16.4 % (0-14.5)
[2019-07-13 15:20] LABS: ALBUMIN 3.8 gm/dl (3.1-4.5); ALKALINE PHOSPHATASE 98 U/L (45-117); BUN 16 mg/dl (7-24); CHLORIDE 107 mmol/L (98-107); CREATININE 0.97 mg/dL (0.70-1.30); POTASSIUM 4.1 mmol/L (3.5-5.1); SGOT/AST 27 IU/L (3-35); SGPT/ALT 29 U/L (12-78); SODIUM 139 mmol/L (136-145); TOTAL PROTEIN 7.1 gm/dL (6.4-8.2)
[2019-07-13 15:36] LABS: CEA 2.9 ng/mL
== END | disposition home or self-care (01) ==
LOC: LAB 14:11
PROVIDERS: Internal Medicine Hematology & Oncology
DX: C18.4 Malignant neoplasm of transverse colon (principal); C78.7 Secondary malignant neoplasm of liver and intrahepatic bile duct

== ENCOUNTER → 2019-08-15 | Outpatient (CLI) | payer OTHER ==
[~2019-08-15] MED LIST changes: +KEFLEX500 M1 PO
[2019-08-15 10:04] LABS: BASO % 0.8 % (0.0-1.0); EOS # 0.3 10*3/uL (0.0-0.4); EOS % 5.6 % (1.0-4.0); HEMATOCRIT 41.3 % (42.0-52.0); LYMPH # 1.6 10*3/uL (1.3-4.4); LYMPH % 30.6 % (27.0-41.0); MEAN CELL VOLUME 101.5 fl (80.0-94.0); MEAN CORPUSCULAR HGB 34.9 pg (27.0-31.0); MEAN CORPUSCULAR HGB CONC 34.4 g/dl (33.0-37.0); MEAN PLATELET VOLUME 10.9 fl (9.6-12.3); MONO # 0.5 10*3/uL (0.1-1.0); MONO % 9.3 % (3.0-9.0); NEUT # 2.8 10*3/uL (2.3-7.9); NEUT % 53.5 % (47.0-73.0); PLATELET COUNT AUTOMATED 192 10*3/uL (130-400); RED BLOOD COUNT 4.07 10*6/uL (4.50-5.90); RED CELL DISTRI WIDTH 14.6 % (0-14.5); WHITE BLOOD COUNT 5.2 10*3/uL (4.8-10.8)
[2019-08-15 10:07] LABS: ALBUMIN 3.8 gm/dl (3.1-4.5); ALKALINE PHOSPHATASE 101 U/L (45-117); BUN 27 mg/dl (7-24); CHLORIDE 106 mmol/L (98-107); CREATININE 1.07 mg/dL (0.70-1.30); SGOT/AST 22 IU/L (3-35); SGPT/ALT 21 U/L (12-78); SODIUM 140 mmol/L (136-145); TOTAL PROTEIN 7.4 gm/dL (6.4-8.2)
[2019-08-15 10:08] LABS: POTASSIUM 4.1 mmol/L (3.5-5.1)
== END | disposition home or self-care (01) ==
LOC: LAB 09:25
PROVIDERS: Internal Medicine Hematology & Oncology
DX: C18.4 Malignant neoplasm of transverse colon (principal)

== ENCOUNTER 2019-08-31 18:43 | Emergency (ER) | payer OTHER ==
[~2019-08-31] VITALS: Ht 177.8 cm; Wt 67.6 kg
[~2019-08-31 18:43] MED LIST changes: -KEFLEX500 M1 PO
[2019-08-31 20:50] LABS: BASO # 0.1 10*3/uL (0.0-0.1); BASO % 0.8 % (0.0-1.0); EOS # 0.3 10*3/uL (0.0-0.4); EOS % 4.8 % (1.0-4.0); HEMATOCRIT 41.7 % (42.0-52.0); LYMPH # 1.3 10*3/uL (1.3-4.4); LYMPH % 21.2 % (27.0-41.0); MEAN CORPUSCULAR HGB 34.2 pg (27.0-31.0); MEAN CORPUSCULAR HGB CONC 34.5 g/dl (33.0-37.0); MEAN PLATELET VOLUME 10.6 fl (9.6-12.3); MONO # 0.6 10*3/uL (0.1-1.0); MONO % 9.1 % (3.0-9.0); NEUT # 3.9 10*3/uL (2.3-7.9); NEUT % 63.9 % (47.0-73.0); PLATELET COUNT AUTOMATED 212 10*3/uL (130-400); RED BLOOD COUNT 4.21 10*6/uL (4.50-5.90); RED CELL DISTRI WIDTH 15.1 % (0-14.5)
[2019-08-31 21:07] LABS: ALBUMIN 3.9 gm/dl (3.1-4.5); ALKALINE PHOSPHATASE 108 U/L (45-117); BUN 18 mg/dl (7-24); CHLORIDE 108 mmol/L (98-107); CREATININE 1.01 mg/dL (0.70-1.30); POTASSIUM 4.6 mmol/L (3.5-5.1); SGOT/AST 30 IU/L (3-35); SGPT/ALT 24 U/L (12-78); SODIUM 142 mmol/L (136-145); TOTAL PROTEIN 7.6 gm/dL (6.4-8.2)
[2019-08-31 22:41] LABS: BILIRUBIN NEGATIVE (NEGATIVE); BLOOD NEGATIVE (NEGATIVE); CLARITY CLEAR (CLEAR); COLOR YELLOW (YELLOW); GLUCOSE NEGATIVE (NEGATIVE); KETONE NEGATIVE (NEGATIVE)
[2019-08-31 22:43] LABS: LEUKO ESTERASE TRACE (NEGATIVE); NITRITE NEGATIVE (NEGATIVE); UROBILINOGEN 0.2 E.U./dl (0.2-1.0)
[2019-08-31 22:49] LABS: BACTERIA 1+; EPITHELIAL CELLS 16-20
[2019-08-31 22:50] LABS: MUCOUS 1+
[2019-09-01] MEDS ORDERED: KEFLEX500 M1 PO (01:01)
== END 2019-09-01 02:45 | disposition home or self-care (01) ==
LOC: ED 18:43
PROVIDERS: Nurse Practitioner
DX: S62.512A Displaced fracture of proximal phalanx of left thumb, initial encounter for closed fracture (principal); R42 Dizziness and giddiness; N39.0 Urinary tract infection, site not specified; K59.00 Constipation, unspecified; R07.81 Pleurodynia; M06.9 Rheumatoid arthritis, unspecified; Z79.899 Other long term (current) drug therapy; Z79.82 Long term (current) use of aspirin; Z72.0 Tobacco use; W18.39XA Other fall on same level, initial encounter; Y93.89 Activity, other specified; Y92.098 Other place in other non-institutional residence as the place of occurrence of the external cause; Y99.8 Other external cause status

== ENCOUNTER 2019-09-27 19:37 | Emergency (ER) | payer OTHER ==
[~2019-09-27] VITALS: Ht 177.8 cm; Wt 47.6 kg
[~2019-09-27 19:37] MED LIST changes: +KEFLEX500 M1 PO
[2019-09-27 21:04] LABS: BASO % 0.5 % (0.0-1.0); EOS # 0.2 10*3/uL (0.0-0.4); EOS % 2.8 % (1.0-4.0); HEMATOCRIT 42.2 % (42.0-52.0); LYMPH # 1.4 10*3/uL (1.3-4.4); LYMPH % 17.5 % (27.0-41.0); MEAN CELL VOLUME 99.3 fl (80.0-94.0); MEAN CORPUSCULAR HGB 33.4 pg (27.0-31.0); MEAN CORPUSCULAR HGB CONC 33.6 g/dl (33.0-37.0); MEAN PLATELET VOLUME 11.2 fl (9.6-12.3); MONO # 0.7 10*3/uL (0.1-1.0); NEUT # 5.5 10*3/uL (2.3-7.9); NEUT % 70.1 % (47.0-73.0); PLATELET COUNT AUTOMATED 185 10*3/uL (130-400); RED BLOOD COUNT 4.25 10*6/uL (4.50-5.90); RED CELL DISTRI WIDTH 14.7 % (0-14.5); WHITE BLOOD COUNT 7.9 10*3/uL (4.8-10.8)
[2019-09-27 21:23] LABS: ALBUMIN 4.2 gm/dl (3.1-4.5); ALKALINE PHOSPHATASE 115 U/L (45-117); BUN 13 mg/dl (7-24); CHLORIDE 108 mmol/L (98-107); CREATININE 0.94 mg/dL (0.70-1.30); POTASSIUM 3.9 mmol/L (3.5-5.1); SGOT/AST 32 IU/L (3-35); SGPT/ALT 24 U/L (12-78); SODIUM 139 mmol/L (136-145); TOTAL PROTEIN 8.2 gm/dL (6.4-8.2)
[2019-09-27 21:39] LABS: BILIRUBIN NEGATIVE (NEGATIVE); CLARITY CLEAR (CLEAR); COLOR STRAW (YELLOW); GLUCOSE NEGATIVE (NEGATIVE); KETONE NEGATIVE (NEGATIVE)
[2019-09-27 21:40] LABS: BLOOD 1+ (NEGATIVE); NITRITE NEGATIVE (NEGATIVE); SPECIFIC GRAVITY 1.015 (1.005-1.030); UROBILINOGEN 0.2 E.U./dl (0.2-1.0)
[2019-09-27 21:42] LABS: LEUKO ESTERASE 1+ (NEGATIVE)
== END 2019-09-27 23:56 | disposition home or self-care (01) ==
LOC: ED 19:37
PROVIDERS: Emergency Medicine
DX: F41.9 Anxiety disorder, unspecified (principal); R45.1 Restlessness and agitation; R45.0 Nervousness; K21.9 Gastro-esophageal reflux disease without esophagitis; I11.0 Hypertensive heart disease with heart failure; I50.9 Heart failure, unspecified; I25.10 Atherosclerotic heart disease of native coronary artery without angina pectoris; E78.5 Hyperlipidemia, unspecified; F17.210 Nicotine dependence, cigarettes, uncomplicated; Z79.899 Other long term (current) drug therapy; Z79.82 Long term (current) use of aspirin

== ENCOUNTER 2020-01-15 20:30 | Emergency (ER) | payer MEDICARE ==
[~2020-01-15] VITALS: Wt 62.6 kg
[2020-01-15 21:03] LABS: BASO # 0.1 10*3/uL (0.0-0.1); BASO % 0.4 % (0.0-1.0); EOS # 0.2 10*3/uL (0.0-0.4); EOS % 1.7 % (1.0-4.0); LYMPH # 1.6 10*3/uL (1.3-4.4); LYMPH % 13.5 % (27.0-41.0); MEAN CELL VOLUME 87.5 fl (80.0-94.0); MEAN CORPUSCULAR HGB CONC 33.1 g/dl (33.0-37.0); MEAN PLATELET VOLUME 9.8 fl (9.6-12.3); MONO # 1.2 10*3/uL (0.1-1.0); MONO % 10.2 % (3.0-9.0); NEUT # 8.5 10*3/uL (2.3-7.9); NEUT % 73.9 % (47.0-73.0); PLATELET COUNT AUTOMATED 352 10*3/uL (130-400); RED CELL DISTRI WIDTH 12.8 % (0-14.5); WHITE BLOOD COUNT 11.5 10*3/uL (4.8-10.8)
[2020-01-15 21:20] LABS: ALBUMIN 3.3 gm/dl (3.1-4.5); ALKALINE PHOSPHATASE 274 U/L (45-117); BUN 9 mg/dl (7-24); CHLORIDE 100 mmol/L (98-107); CREATININE 0.64 mg/dL (0.70-1.30); LIPASE 71 U/L (73-393); POTASSIUM 3.8 mmol/L (3.5-5.1); SGOT/AST 52 IU/L (3-35); SGPT/ALT 70 U/L (12-78); SODIUM 137 mmol/L (136-145); TOTAL PROTEIN 7.2 gm/dL (6.4-8.2)
[2020-01-15 21:21] LABS: TROPONIN I < 0.015 ng/ml (<0.045)
[2020-01-15 22:51] LABS: BILIRUBIN Negative (Negative); BLOOD Negative (Negative); CLARITY Clear (Clear); COLOR Yellow (Yellow); GLUCOSE Negative (Negative); KETONE Negative (Negative); LEUKO ESTERASE Negative (Negative); NITRITE Negative (Negative); PH 7.5 (4.5-8.0); SPECIFIC GRAVITY 1.015 (1.001-1.030); UROBILINOGEN 0.2 E.U./dl (0.0-1.0)
[2020-01-15 23:03] LABS: BACTERIA TRACE; RBC 0-2 rbc/hpf (0-2)
== END 2020-01-16 00:14 | disposition home or self-care (01) ==
LOC: ED 20:30
PROVIDERS: Emergency Medicine
DX: C18.9 Malignant neoplasm of colon, unspecified (principal); Z79.899 Other long term (current) drug therapy; Z79.82 Long term (current) use of aspirin; Z72.0 Tobacco use